=== PATIENT | female | born 1990 | race Two or more races ===

== ENCOUNTER 2018-09-13 15:34 | Emergency (ER) | payer SELFPAY ==
[~2018-09-13] VITALS: Ht 162.6 cm; Wt 86.2 kg
[2018-09-13 15:55] LABS: BILIRUBIN,URINE NEGATIVE (NEG); CLARITY,URINE CLOUDY; NITRITE,URINE NEGATIVE (NEG); PH,URINE 6.5; PROTEIN,URINE NEGATIVE (NEG-TRACE)
[2018-09-13 16:00] LABS: COLOR,URINE RED; RBC,URINE >40 /HPF (0-2)
[2018-09-13] MEDS ORDERED: fentaNYL PF VIAL 100 MCG/2 ML VIAL IV ONE ×2 (16:00→17:00)
[2018-09-13] MEDS ORDERED: IV NORMAL SALINE 1000ML BAG 1,000 ML IV ONE (16:00)
[2018-09-13 16:01] LABS: BACTERIA,URINE FEW /HPF (0-FEW); SQUAMOUS EPITHELIAL CELL,UR FEW /LPF
--- NOTE | 2018-09-13 16:03 | PHYS DOC ---
Past Medical History Additional Past Medical Histor: PE Past Surgical History: No Surgical History Additional Information: Nonsmoker Alcohol Use: None Drug Use: None Adult General Chief Complaint Chief Complaint: ABDOMINAL PAIN HPI HPI Patient is a 28 year old female who presents with epigastric and RUQ pain. Patient had onset of symptoms about 30 minutes prior to presentation. She describes a severe, sharp stabbing type pain which began suddenly. She rates the pain to be severe. The pain is nonradiating. She has no nausea or vomiting associated with her symptoms. She has never had pain like this in the past. She does not have any surgical history. No urinary or vaginal symptoms. LMP is currently. Patient has Mirena IUD in place for contraception. Patient last ate a full meal about 30 minutes prior to onset of symptoms so about one hour prior to ED presentation. Of note, the patient does take Eliquis because of a prior history of unprovoked pulmonary emboli. She does not complain of bleeding anywhere at this time other than current menstrual cycle. Review of Systems Review of Systems Constitutional: Denies fever Eyes: Denies change in visual acuity HENT: Denies nasal congestion or sore throat Respiratory: Denies cough or shortness of breath Cardiovascular: No additional information not addressed in HPI GI: Denies nausea or emesis : Denies dysuria Musculoskeletal: Denies back pain Integument: Denies rash Neurologic: Denies headache Endocrine: Denies polyuria All other systems were reviewed and found to be within normal limits, except as documented in this note. Current Medications Current Medications Current Medications Medications (Trade) Dose Ordered Sig/Kathe Start Time Stop Time Status Last Admin Dose Admin Famotidine (Pepcid Vial) 20 mg 1X ONCE 09/13/18 18:00 09/13/18 18:01 DC 09/13/18 17:56 20 MG Fentanyl Citrate (Fentanyl 2ml Vial) 75 mcg 1X ONCE 09/13/18 17:00 09/13/18 17:01 DC 09/13/18 16:55 75 MCG Info (CONTRAST GIVEN -- Rx MONITORING) 1 each PRN DAILY PRN 09/13/18 19:00 09/13/18 21:37 DC Iohexol (Omnipaque 300 Mg/ml) 75 ml 1X ONCE 09/13/18 19:15 09/13/18 19:16 DC 09/13/18 19:32 75 ML Morphine Sulfate (Morphine Sulfate) 6 mg 1X ONCE 09/13/18 18:00 09/13/18 18:01 DC 09/13/18 17:56 6 MG Sodium Chloride 1,000 ml @ 1,000 mls/hr 1X ONCE 09/13/18 16:00 09/13/18 16:59 DC 09/13/18 16:19 1,000 MLS/HR Allergies Allergies Allergies Coded Allergies Type Severity Reaction Last Updated Verified No Known Drug Allergies 09/13/18 No Physical Exam Physical Exam Constitutional: Well developed, well nourished, moderate distress 2/2 pain HENT: Normocephalic, atraumatic, bilateral external ears normal, oropharynx moist Eyes: PERRLA, EOMI, conjunctiva normal Neck: Normal range of motion, no tenderness Cardiovascular:Heart rate regular rhythm, no murmur Lungs & Thorax: Bilateral breath sounds clear to auscultation Abdomen: Bowel sounds normal, soft, + TTP over right upper quadrant but no guarding or rebound Skin: Warm, dry, no erythema, no rash Back: No tenderness Extremities: No tenderness Neurologic: Alert and oriented X 3 Psychologic: Affect normal KLEIN Physical Exam: Constitutional: Well developed, well nourished, uncomfortable Lungs & Thorax: Bilateral breath sounds clear to auscultation Abdomen: RUQ and epigastric abdominal pain on palpation Back: No CVA tenderness Current Patient Data Vital Signs Vital Signs Date Time Temp Pulse Resp B/P (MAP) Pulse Ox O2 Delivery O2 Flow Rate FiO2 09/13/18 18:46 66 15 131/82 (98) 98 Room Air 09/13/18 15:45 97.7 97.7 Lab Values Laboratory Tests Test 09/13/18 15:40 09/13/18 15:48 09/13/18 15:50 Urine Collection Type Unknown Urine Color Red Urine Clarity Cloudy Urine pH 6.5 Urine Specific [place] 1.025 Urine Protein Negative mg/dL (NEG-TRACE) Urine Glucose (UA) Negative mg/dL (NEG) Urine Ketones (Stick) Negative mg/dL (NEG) Urine Blood Large (NEG) Urine Nitrite Negative (NEG) Urine Bilirubin Negative (NEG) Urine Urobilinogen Dipstick 1.0 mg/dL (0.2 mg/dL) Urine Leukocyte Esterase Small (NEG) Urine RBC >40 /HPF (0-2) Urine WBC 1-4 /HPF (0-4) Urine Squamous Epithelial Cells Few /LPF Urine Bacteria Few /HPF (0-FEW) POC Urine HCG, Qualitative Hcg negative (Negative) White Blood Count 8.6 x10^3/uL (4.0-11.0) Red Blood Count 4.86 x10^6/uL (3.50-5.40) Hemoglobin 14.1 g/dL (12.0-15.5) Hematocrit 40.1 % (36.0-47.0) Mean Corpuscular Volume 83 fL (79-100) Mean Corpuscular Hemoglobin 29 pg (25-35) Mean Corpuscular Hemoglobin Concent 35 g/dL (31-37) Red Cell Distribution Width 14.9 % (11.5-14.5) H Platelet Count 217 x10^3/uL (140-400) Neutrophils (%) (Auto) 54 % (31-73) Lymphocytes (%) (Auto) 36 % (24-48) Monocytes (%) (Auto) 7 % (0-9) Eosinophils (%) (Auto) 2 % (0-3) Basophils (%) (Auto) 1 % (0-3) Neutrophils # (Auto) 4.7 x10^3uL (1.8-7.7) Lymphocytes # (Auto) 3.1 x10^3/uL (1.0-4.8) Monocytes # (Auto) 0.6 x10^3/uL (0.0-1.1) Eosinophils # (Auto) 0.1 x10^3/uL (0.0-0.7) Basophils # (Auto) 0.1 x10^3/uL (0.0-0.2) Sodium Level 139 mmol/L (136-145) Potassium Level 3.7 mmol/L (3.5-5.1) Chloride Level 101 mmol/L (98-107) Carbon Dioxide Level 27 mmol/L (21-32) Anion Gap 11 (6-14) Blood Urea Nitrogen 13 mg/dL (7-20) Creatinine 0.8 mg/dL (0.6-1.0) Estimated GFR (Cockcroft-Gault) 84.2 Glucose Level 118 mg/dL (70-99) H Calcium Level 9.2 mg/dL (8.5-10.1) Total Bilirubin 0.5 mg/dL (0.2-1.0) Direct Bilirubin 0.1 mg/dL (0.0-0.2) Aspartate Amino Transferase (AST) 16 U/L (15-37) Alanine Aminotransferase (ALT) 23 U/L (14-59) Alkaline Phosphatase 90 U/L (46-116) Total Protein 8.0 g/dL (6.4-8.2) Albumin 4.0 g/dL (3.4-5.0) Lipase 195 U/L (73-393) Laboratory Tests 09/13/18 15:50 Laboratory Tests 09/13/18 15:50 EKG EKG [] Radiology/Procedures Radiology/Procedures RUQ US: Findings: The liver is normal in size and echogenicity without any focal lesions. There is no intra or extrahepatic biliary ductal dilatation. The gallbladder is well distended without any shadowing intraluminal calculus, pericholecystic fluid or gallbladder wall thickening. Minimal amount of sludge is seen in the gallbladder. The gallbladder wall measures 2.0 mm. The common bile duct measures 3.3 mm. The right kidney appears unremarkable and measures 11.6 cm in length. There is no hydronephrosis or perinephric fluid collection. The visualized pancreas , aorta and IVC appear unremarkable. Impression: 1. Essentially unremarkable right upper quadrant sonogram. PROCEDURE: CT ABD PELV W/ IV CONTRST ONLY Exam performed: CT scan of the abdomen and pelvis with contrast Clinical Indication:Sudden oset upper abdominal pain Date of Service:09/13/18 , Comparison: Limited abdominal survry from earlier today. Technique: Contiguous helical acquisitions are obtained from the lung bases to the pelvis during intravenous administration of [75 mL of Omnipaque 300]. Sagittal and coronal reformatted images were obtained and reviewed. CT abdomen findings: Right basilar opacity likely atelectasis. Visualized heart is normal. Density in the left breast may be related to dense fibroglandular tissues. The liver, spleen and pancreas appears unremarkable. Cholelithiasis Both adrenal glands and bilateral kidneys appear normal with symmetric excretion of contrast via both kidneys. The small bowel loops appear nondilated and unremarkable. Aorta is normal in caliber. There is no retroperitoneal lymphadenopathy or mass lesions. No bowel related inflammatory stranding is noted. No obvious stranding is seen in the pericecal region. CT pelvis findings: The pelvic bowel loops are nondilated and unremarkable. The urinary bladder is partially decompressed and normal . The uterus is anteverted with IUD in place. Interrogation of bone windows demonstrates no obvious bony abnormality. Sagittal and coronal reformatted images were obtained and reviewed which demonstrate no additional findings. Impression abdomen and pelvis : 1. No acute intra-abdominal or pelvic process is detected. 2. Cholelithiasis PQRS Compliance Statement: One or more of the following individualized dose reduction techniques were utilized for this examination: 1. Automated exposure control 2. Adjustment of the mA and/or kV according to patient size 3. Use of iterative reconstruction technique Electronically signed by: Yessica Root MD (09/13/2018 8:12 PM) [facility] Course & Med Decision Making Course & Med Decision Making Pertinent Labs and Imaging studies reviewed. (See chart for details) 16:00: Patient is evaluated immediately on arrival to her room. She has significant distress. Her symptoms are concerning for cholecystitis. We will do a right upper quadrant ultrasound. Medications are ordered for pain. IV fluids. Labs. 16:55: Ultrasound is reviewed. I do not see any pericholecystic fluid or stones present. No thickening of the anterior wall. CT scan is ordered. Additional pain medications are also ordered for the patient as she continues to have pain. 17:50: Continued pain. Abd is mildly TTP but no guarding or rebound. Labs reviewed and no acute findings. CT scan pending. 18:[address] Klein. Please f/u on symptom control and CT results. Sign out received from Dr. Kinsey for patient with RUQ/epigastric pain. Labs reviewed. US Abd reviewed. Patient pending CT evaluation. Patient seen and evaluated by myself. CT with findings consistent for cholelithiasis without cholecystitis. Patient stable for discharge with outpatient follow-up with PCP/ Gen. surgery. Gen. surgery referral provided. Discussed findings and plan with patient and family, who acknowledge understanding and agreement. Dragon Disclaimer Dragon Disclaimer This electronic medical record was generated, in whole or in part, using a voice recognition dictation system. Departure Departure Impression: Primary Impression: Abdominal pain Additional Impression: Cholelithiasis Disposition: HOME, SELF-CARE Condition: STABLE Referrals: GELA GARCIA MD Patient Instructions: Abdominal Pain (Nonspecific), Cholelithiasis, Easy-to- Read Scripts Famotidine (PEPCID) 20 Mg Tablet 20 MG PO BID, #20 TAB Prov: FADI KLEIN DO 09/13/18 Ondansetron (ONDANSETRON ODT) 4 Mg Tab.rapdis 1 TAB PO PRN Q6-8HRS PRN for NAUSEA, #16 TAB Prov: FADI KLEIN DO 09/13/18 Hydrocodone/Apap 5-325 (NORCO 5-325 TABLET) 1 Each Tablet 0.5-1 TAB PO PRN Q6HRS PRN for PAIN, #10 TAB 0 Refills Prov: FADI KLEIN DO 09/13/18 Problem Qualifiers Primary Impression: Abdominal pain Abdominal location: right upper quadrant Qualified Codes: R10.11 - Right upper quadrant pain Additional Impression: Cholelithiasis Cholelithiasis location: gallbladder Cholecystitis presence: without cholecystitis Biliary obstruction: without biliary obstruction Qualified Codes: K80.20 - Calculus of gallbladder without cholecystitis without obstruction MILVIA KINSEY DO Sep 13, 2018 16:03 FADI KLEIN DO Sep 13, 2018 21:11
[2018-09-13 16:04] LABS: BASO # 0.1 x10^3/uL (0.0-0.2); BASO % 1 % (0-3); EOS # 0.1 x10^3/uL (0.0-0.7); EOS % 2 % (0-3); HEMATOCRIT 40.1 % (36.0-47.0); HEMOGLOBIN 14.1 g/dL (12.0-15.5); LYMPH # 3.1 x10^3/uL (1.0-4.8); LYMPH % 36 % (24-48); MEAN CORPUSCULAR HEMOGLOBIN 29 pg (25-35); MEAN CORPUSCULAR HGB CONC 35 g/dL (31-37); MEAN CORPUSCULAR VOLUME 83 fL (79-100); MONO # 0.6 x10^3/uL (0.0-1.1); MONO % 7 % (0-9); NEUT # 4.7 x10^3uL (1.8-7.7); NEUT % 54 % (31-73); PLATELET COUNT 217 x10^3/uL (140-400); RED BLOOD COUNT 4.86 x10^6/uL (3.50-5.40); RED CELL DISTRIBUTION WIDTH 14.9 % (11.5-14.5); WHITE BLOOD COUNT 8.6 x10^3/uL (4.0-11.0)
[2018-09-13 16:13] LABS: CALCIUM 9.2 mg/dL (8.5-10.1); CREATININE 0.8 mg/dL (0.6-1.0); GFR 84.2; POTASSIUM 3.7 mmol/L (3.5-5.1)
[2018-09-13 16:19] LABS: DIRECT BILIRUBIN 0.1 mg/dL (0.0-0.2); TOTAL BILIRUBIN 0.5 mg/dL (0.2-1.0)
[2018-09-13] MEDS ORDERED: FAMOTIDINE 20 MG/2 ML VIAL IVP ONE (18:00)
[2018-09-13] MEDS ORDERED: MORPHINE SULFATE 10 MG/ML VIAL. IV ONE (18:00)
--- NOTE | 2018-09-13 18:10 | RAD ---
Exam performed: Limited right upper quadrant sonogram. Indication: Right upper quadrant pain after eating Date of Service: 09/13/2018 . Comparison: None available Technique: Real-time grayscale imaging of the right upper abdomen is performed and images are obtained. Findings: The liver is normal in size and echogenicity without any focal lesions. There is no intra or extrahepatic biliary ductal dilatation. The gallbladder is well distended without any shadowing intraluminal calculus, pericholecystic fluid or gallbladder wall thickening. Minimal amount of sludge is seen in the gallbladder. The gallbladder wall measures 2.0 mm. The common bile duct measures 3.3 mm. The right kidney appears unremarkable and measures 11.6 cm in length. There is no hydronephrosis or perinephric fluid collection. The visualized pancreas , aorta and IVC appear unremarkable. Impression: 1. Essentially unremarkable right upper quadrant sonogram. Electronically signed by: Yessica Root MD (09/13/2018 6:05 PM) [facility]
[2018-09-13 18:46] VITALS: BP 131/82
[2018-09-13] MEDS ORDERED: CONTRAST GIVEN. MC PRN (19:00)
[2018-09-13] MEDS ORDERED: IOHEXOL 300 MG/ML 100ML VIAL. IV ONE (19:15)
--- NOTE | 2018-09-13 20:16 | RAD ---
Exam performed: CT scan of the abdomen and pelvis with contrast Clinical Indication:Sudden oset upper abdominal pain Date of Service:09/13/18 , Comparison: Limited abdominal survry from earlier today. Technique: Contiguous helical acquisitions are obtained from the lung bases to the pelvis during intravenous administration of [75 mL of Omnipaque 300]. Sagittal and coronal reformatted images were obtained and reviewed. CT abdomen findings: Right basilar opacity likely atelectasis. Visualized heart is normal. Density in the left breast may be related to dense fibroglandular tissues. The liver, spleen and pancreas appears unremarkable. Cholelithiasis Both adrenal glands and bilateral kidneys appear normal with symmetric excretion of contrast via both kidneys. The small bowel loops appear nondilated and unremarkable. Aorta is normal in caliber. There is no retroperitoneal lymphadenopathy or mass lesions. No bowel related inflammatory stranding is noted. No obvious stranding is seen in the pericecal region. CT pelvis findings: The pelvic bowel loops are nondilated and unremarkable. The urinary bladder is partially decompressed and normal . The uterus is anteverted with IUD in place. Interrogation of bone windows demonstrates no obvious bony abnormality. Sagittal and coronal reformatted images were obtained and reviewed which demonstrate no additional findings. Impression abdomen and pelvis : 1. No acute intra-abdominal or pelvic process is detected. 2. Cholelithiasis PQRS Compliance Statement: One or more of the following individualized dose reduction techniques were utilized for this examination: 1. Automated exposure control 2. Adjustment of the mA and/or kV according to patient size 3. Use of iterative reconstruction technique Electronically signed by: Yessica Root MD (09/13/2018 8:12 PM) [facility]
[2018-09-13] MEDS ORDERED: HYDR-3164 PO (21:11)
[2018-09-13] MEDS ORDERED: FAMO-63 PO (21:11)
[2018-09-13] MEDS ORDERED: ONDA4TAB12 PO (21:11)
== END 2018-09-13 21:30 | disposition home or self-care (01) ==
LOC: ER 15:34
DX: K80.20 Calculus of gallbladder without cholecystitis without obstruction (principal)
CPT/HCPCS: 36415; 74177; 76705; 80048; 80076; 81001; 81025; 83690; 85025; 96374; 96375; 96376; 99284; J2270; J3010; J3490; J7030; Q9967